=== PATIENT | male | born 1975 | race Caucasian/White ===

== ENCOUNTER 2020-08-27 08:59 | Emergency (ER) | payer OTHER, SELFPAY ==
[2020-08-27 09:28] VITALS: BP 157/94; PULSE 81; RESP 19; TEMP 36.6; O2SAT 100; BMI 37.2
--- NOTE | 2020-08-27 09:36 | HMH.EDUTC ---
[facility] [place] Clinical Impression: Exposure to COVID-19 virus, Encounter for laboratory testing for COVID-19 virus Disposition: Home, Self-Care Condition on Discharge: Good Instructions: Preventing the Spread of Coronavirus Discharge Instructions Additional Instructions: *Monitor Temp, Over the counter Motrin or Tylenol as directed/as needed Tylenol every 4 hours and Motrin every 6 hours (as long as your family doctor has told you that you can take it) for fever or pain. and straight to ER if unable to lower temp less than 101.0 after medication given *Warm salt water gargles may help to soothe the throat *Throat Lozenges *Warm fluids like tea with honey may help to soothe the throat *Sleep elevated *Humidifier/Vaporizer Follow up IMMEDIATELY for new or worsening symptoms or no Noticeable improvement over the next 48-72 hours. 911 for difficulty breathing or swallowing You was tested for today for COVID19 your test result should be back later this evening, you may call back later this evening to see if your test results are back and the result You was given a handout with instructions for Self Quarantine and Self isolation for while you wait on test results and what to do if they are positive Referrals: Rocael Rodriguez [Primary Care Provider] - As needed Forms: Work/School Release Time of Disposition: 09:42 Medical Decision Making - Andrew Inquiry Pt receiving controlled substance: No Andrew was queried for this patient: No Vital Signs: 08/27/20 09:28 Temperature 97.9 F Temperature Source Oral Pulse Rate [Right Brachial] 81 Respiratory Rate 19 Blood Pressure [Right Arm] 157/94 H Blood Pressure Mean [Right Arm] 115 Blood Pressure Source [Right Arm] Automatic Cuff Blood Pressure Position [Right Arm] Sitting 02 Sat by Pulse Oximetry 100 Oxygen Delivery Method Room Air Orders (Tests/Meds): ORDERS Category Date Time Status Covid-19 Nasal PCR ([facility]) Routine Lab 08/27/20 09:16 Received [facility] [place]PI - General Stated complaint: covid exposure Time Seen by Provider: 08/27/20 09:36 Mode of Arrival: Ambulatory Source of Information: Patient Limitations: No Limitations Description of Symptoms (Recalled from Triage Doc. by RN): PATIENT REQUESTING COVID TEST; STATES HE WAS POTENTIALLY EXPOSED LAST WEDNESDAY. DENIES ANY SYMPTOMS HEENT Symptoms (Recalled from RN notes): No Resp Symptoms (Recalled from RN notes): No Skin Symptoms (Recalled from RN notes): No MS Symptoms (Recalled from RN notes): No Functional Status (Recalled from RN notes): WNL - History of Present Illness Provider Complaint: Patient states that he was exposed to COVID last week States that one of his coworkers thought he had allergies last week and symptoms continued so yesterday he got tested for COVID and it was positive so today he came in to get checked - Worker's Comp Is this a Worker's Comp case?: No [facility] History - Hepatitis A Screen Drug use history?: No High risk sexual behaviors?: No History of sexually transmitted infection?: No Currently employed?: No Childcare worker?: No Do you have indoor plumbing?: Yes Do you have electricity?: Yes Attestation statement:: This patient has been screened for Hepatitis A risk factors. I have reviewed the patient's past medical history: Yes - Social History Alcohol Intake: never Occupational Status: other ROS Obtained: Yes All systems reviewed & no additional complaints, Yes Systems reviewed as appropriate & no additional complaints - Constitutional Constitutional: Reports system reviewed and no additional complaints, except as docu, Denies body ache, Denies chills, Denies fever(s), Denies headache(s) - ENT Ears, Nose, Mouth, and Throat: Reports system reviewed and no additional complaints, except as docu - Cardiovascular Cardiovascular: Reports system reviewed and no additional complaints, except as docu - Respiratory Respiratory: Yes system reviewed and no additional
[2020-08-27 09:44] VITALS: BP 157/94; PULSE 81; RESP 19; TEMP 36.6; O2SAT 100
== END 2020-08-27 09:54 | disposition home or self-care (01) ==
PROVIDERS: Emergency Provider Nurse Practitioner; PCP Family Medicine
DX: Z20.828 Contact with and (suspected) exposure to other viral communicable diseases (principal)
CPT/HCPCS: 99201; U0003